=== PATIENT | male | born 1970 | race Caucasian/White ===

== ENCOUNTER 2025-06-02 00:04 | Emergency (ER) | payer OTHER, SELFPAY ==
[2025-06-02 00:06] VITALS: BP 148/80
[2025-06-02 00:52] VITALS: BMI 30.1
[2025-06-02] MEDS: NSS 1000 IV (00:57)
[2025-06-02] MEDS: ZOFRAN 4 MG IV (00:59)
--- NOTE | 2025-06-02 01:00 | EDRN ---
Pt with L flank pain since Monday. Pt had a kidney stone 2 years ago and says he feels like he did then. Pt vomited Monday night, none since. pt has had nausea. Pain getting worse and constant. Pt took oxycontin Monday to help with pain and
sleep. Pt tried aleve which did not help. No urinary symptoms, fever/chills. Pt has had a cough. Pt was sweaty yesterday. NO cp/sob, abd pain.
[2025-06-02] MEDS: DILAUDID 1 MG IV (01:03)
[2025-06-02 01:25] LABS: Hematocrit 38.7 % (39.0-52.0); Hemoglobin 12.9 g/dL (13.0-18.0); Mean Corp Hgb Conc. 33.3 g/dL (33.0-37.0); Mean Corpuscular Volume 91.5 fL (80.0-94.0); Nucleated Red Blood Cells % 0 % (-); Platelet Count 166 10^3/uL (130-400); Red Cell Dist. Width 13.0 % (11.5-14.5)
[2025-06-02 01:32] LABS: ALT (SGPT) 125 U/L (0-50); AST (SGOT) 78 U/L (17-59); Albumin 4.4 g/dl (3.5-5.0); Alkaline Phosphatase 97 U/L (38-126); Blood Urea Nitrogen 11 mg/dl (9-20); Calcium 9.2 mg/dl (8.4-10.2); Carbon Dioxide 24 mmol/L (22-30); Chloride 108 mmol/L (98-107); Estimated Creatinine Clearance > 125 ml/min; Glucose 123 mg/dl (70-99); Potassium 4.3 mmol/L (3.5-5.1); Sodium 142 mmol/L (135-145); Total Protein 8.0 g/dl (6.3-8.2); eGFR > 60.00
[2025-06-02 01:54] LABS: Urine Character Clear (Clear)
[2025-06-02 02:02] LABS: Urine Squamous Cell 0-2 /LPF (Few)
[2025-06-02 02:04] LABS: Urine Red Blood Cell 0-2 /HPF (0-2); Urine White Cell 0-2 /HPF (0-5)
[2025-06-02 02:12] VITALS: BP 122/71
--- NOTE | 2025-06-02 02:13 | EDRN ---
Pt says he still has some nausea but is not going to vomit. Pt feels more relaxed after dilaudid. Pt feels 'alright' while lying on stretcher but said when he got up to get on CT table, pain increased. Offered pt more nausea and/or pain
medication and which he declined. Pt encouraged to call if he changes his mind or symptoms worsen.
--- NOTE | 2025-06-02 02:21 | ED.GENMED ---
History of Present Illness
General
Chief Complaint: Flank Pain
Source: patient, spouse and previous hospital records (ED visit November 2022 with somewhat similar left flank pain. At that time found to have 3 mm left UVJ stone.)
Exam Limitations: none
Time Seen by Provider: 06/02/25 00:32
Nursing documentation reviewed up to this point in time: agreed with
History of Present Illness
History of Present Illness:
The patient is a 54-year-old male who presents with severe left-sided low back pain that began two nights ago. He reports that the pain was 'real bad,' prompting consideration of medical attention earlier over the weekend, but he decided to wait.
On Monday, he experienced symptoms including subjective fever�stating that he developed sweats and general malaise, and he describes feeling 'restless,' with an inability to find a comfortable position. He denies dysuria and urgency nor
hematuria. He has not had a cough no shortness of breath, no chest pain. Left sided back pain does not radiate, no leg pain, no weakness no numbness. He does note that back pain is much worse with movement, improves when he is sitting or lying
still. He felt okay Monday when at rest but noticed the pain intensified with movement. The patient reports a history of back problems but states that this episode 'doesn't feel like usual back pain.' He denies recent heavy lifting and describes
mild nausea accompanying his symptoms. Previous episodes of similar pain have been related to kidney stones, with previous ED visit November 2022 with complaints of flank pain. CAT scan at that time revealed a 3 mm stone left UVJ. Patient believes he
passed the stone uneventfully. Has had no return of pain until most recently. He acknowledges a history of kidney stones analyzed to be largely calcium oxalate in composition.
His only daily medication is rosuvastatin.
Past History
Past History
ED Past Medical History: Hypercholesterolemia and Other (Kidney stones, low back pain/lumbar disc disease.)
ED Past Surgical History: None
Social History
Tobacco: Non-smoker
Personal:
Living: with family
Employment: Employed
Family History
Family History: Other (Noncontributory)
Phy Exam
Physical Exam
Physical Exam:
GENERAL: 54-year-old gentleman appears stated age, awake and alert, pleasant, appears in no acute distress. Accompanied by his .
EYE: anicteric
NECK: Supple, nontender, no meningismus, no significant adenopathy.
ENT: oral mucosa is moist. No rhinorrhea.
CARDIAC: Regular rate and rhythm. no murmur.
LUNGS: Clear breath sounds bilaterally, no acute respiratory distress, no wheezes/rales/rhonchi
ABDOMEN: Rotund, soft, nondistended, without focal tenderness, no r/g, mild left CVA tenderness to palpation, normoactive BS.
BACK: No midline bony tenderness. Moderate tenderness left lumbar paravertebral region. Moderately restricted lumbar range of motion related to pain. Mildly positive straight leg raising on the left.
NEUROLOGICAL: Alert and oriented x3, no focal neuro deficits. Gait is steady.
SKIN: Warm and dry, normal color, skin intact. No rash.
MUSCULOSKELETAL: No C/C/E. peripheral pulses are full and equal b/l. No palpable tenderness.
PSYCH: Normal and appropriate interaction.
Course
Orders/Labs/Results
Orders:
Orders
06/02/25 00:42
0.9% Sodium Chloride 1000 ml [Nss] 1,000 ml IV BOLUS
HYDROmorphone [Dilaudid] 1 mg IV NOW STA
Ondansetron Injectable [Zofran] 4 mg IV NOW STA
06/02/25 00:44
CT Abd/pelvis W Iv Cont Urgent
Comment:
Reason For Exam: Left flank to L low back pain N/V. reports fever
06/02/25 00:56
Complete Blood Count/With Diff Urgent
Comprehensive Metabolic Panel Urgent
Urinalysis Reflex To Culture Urgent
Date Specimen was Collected: 06/02/25
Time Specimen was Collected: 00:54
Urine Microscopic Reflex Cult Urgent
06/02/25 02:49
Ketorolac [Toradol] 30 mg IV NOW STA
Abnormal Lab Results
06/02/25
00:56
WBC 4.7 L 10^3/uL
(4.8-10.8)
RBC 4.23 L 10^6/uL
(4.70-6.10)
Hgb 12.9 L g/dL
(13.0-18.0)
Hct 38.7 L %
(39.0-52.0)
MPV 10.7 H fL
(7.4-10.4)
Monocytes % 11.2 H %
(1.7-9.3)
Chloride 108 H mmol/L
(98-107)
Creatinine 0.6 L mg/dL
(0.7-1.3)
Glucose 123 H mg/dl
(70-99)
AST 78 H U/L
(17-59)
ALT 125 H U/L
(0-50)
Ur Occult Blood Reflex 1+ A
(Negative)
Urine Albumin (Reflex) 1+ A
(Neg - Trace)
06/02/25 00:56
06/02/25 00:56
Vital Signs
Initial and Last Documented VS:
Initial Vital Signs
Temp Pulse Resp BP Pulse Ox
97.6 F 84 22 148/80 100
06/02/25 00:06 06/02/25 00:06 06/02/25 00:06 06/02/25 00:06 06/02/25 00:06
Last Documented Vital Signs
Temp Pulse Resp BP Pulse Ox
97.6 F 78 16 122/71 97
06/02/25 00:06 06/02/25 02:12 06/02/25 02:12 06/02/25 02:12 06/02/25 02:30
MDM/Problems Addressed
Differential Diagnosis Includes:
The Differential Diagnosis includes, in no particular order and is not limited to:
1. Acute kidney stone episode
2. Lumbar strain
3. Sciatica
4. Urinary tract infection
5. Pyelonephritis
6. Gastroenteritis
7. Muscular back pain
8. Spinal disc herniation
9. Osteoarthritis exacerbation
10. Viral syndrome
MDM/Problems Addressed:
Acute left-sided back pain.
History of kidney stones as well as prior history of musculoskeletal low back pain.
Reports subjective fever yesterday however did not check his temperature and denies myalgias. His subjective fever was 'sweating' Diaphoresis often times accompanies renal colic. He is currently afebrile.
Exam notable for moderate left-sided back pain that is exacerbated with movement which is more consistent with musculoskeletal back pain.
However with prior history of kidney stones and with questionable fever will check labs, urinalysis and plan for CT abdomen pelvis with IV contrast.
Will initiate IV and medicate for pain with an IV dose of Dilaudid.
Chronic conditions affecting care: Other (Kidney stones, low back pain)
*Radiology
Radiology exam reviewed: radiology read reviewed
*Pulse Oximetry
SaO2: 97
Oxygen Mode of Delivery: Room air
Patient hypoxic: no
*Critical Care Note
Total Time (30-74mins, 75-104mins- exclusive of procedures): Not Applicable
Update Note
Update Note:
02:50
Low back pain moderately improved but continues more so when attempting to reposition, sit up, roll over.
Labs are unremarkable. Mild but stable leukopenia.
Unremarkable chemistries.
Urinalysis is unremarkable as well.
CT abdomen pelvis shows no acute intra-abdominal pathology. No ureteric stone. There is note of central lobar nodules and ground glass opacities within the right middle lobe which may reflect sequelae of infection or aspiration. Patient has not
had a cough, no shortness of breath, no chest pain. Lungs are clear to auscultation. At this point a nonspecific finding.
Low back pain appears musculoskeletal in nature. He continues to have no abdominal pain, no radicular signs or symptoms.
Will prescribe ibuprofen and Flexeril for pain, muscle spasm.
Recommend rest, local heat, gentle stretching.
Prompt follow-up with PCP for recheck.
ED Attending Note
-
Portions of this chart may have been created with voice recognition software.� Occasional wrong word or��sound alike� substitutions may have occurred due to the inherent limitations of voice recognition software.
Discharge Plan
Departure
Patient Disposition: Home (Routine Discharge)
Date of Disposition: 06/02/25
Time of Disposition: 02:53
Patient with high blood pressure during this ER visit?: No
Condition: Good
Discharge Problem:
Acute left-sided low back pain without sciatica
Instructions: Muscle strain, Low back pain in adults
Prescriptions:
New
cyclobenzaprine 10 mg tablet
10 mg PO TIDPRN PRN (Reason: muscle spasm) Qty: 20 0RF
ibuprofen 800 mg tablet
800 mg PO QIDPRN PRN (Reason: pain, fever) Qty: 30 0RF
No Action
rosuvastatin 5 mg Tablet
5 mg PO DAILY
aspirin 81 mg Capsule
81 mg PO DAILY
Referrals:
Judson Tinsley DO [Family Provider, Family Practice] - Call in 1-3 days for appt
Interventions
Interventions:
*Risk Screen - Suicide Last Done: 06/02/25 00:06
*General Assessment Last Done: 06/02/25 00:53
*Neglect/Abuse Screening Last Done: 06/02/25 00:06
*ED COVID-19 Vaccine History Last Done: 06/02/25 00:53
*ED Influenza Vaccine History Last Done: 06/02/25 00:53
WT-Ljuerv-Pnamhcmdpt Assessment Last Done: 06/02/25 01:09
ED-Male Genitourinary Assessment Last Done: 06/02/25 01:09
Discharge Date and Time
Print Language: UKRAINIAN
[2025-06-02] MEDS: TORADOL 30 MG IV (03:02)
== END 2025-06-02 03:15 | disposition home or self-care (01) ==
LOC: EMR 00:04
PROVIDERS: EMERGENCY PHYSICIAN Emergency Medicine; FAMILY PHYSICIAN Family Medicine
DX: M54.50 Low back pain, unspecified (principal); E78.00 Pure hypercholesterolemia, unspecified; Z79.899 Other long term (current) drug therapy; Z87.442 Personal history of urinary calculi
CPT/HCPCS: 99284; 96374; 96375; 96361; 74177; 80053; 81003; 81015; 85025; Q9967